=== PATIENT | male | born 1955 | race Two or more races ===

== ENCOUNTER 2024-07-22 05:59 | Emergency (ER) | payer MEDICARE, OTHER ==
[~2024-07-22] VITALS: Ht 162.6 cm; Wt 65.5 kg
[2024-07-22] MEDS ORDERED: ATOR40TA28 PO (06:09)
[2024-07-22] MEDS ORDERED: LOSA-382 PO (06:09)
[2024-07-22 06:34] LABS: BASOPHILS % (AUTO) 0.5 % (0.0-2.0); EOSINOPHILS % (AUTO) 1.4 % (1.0-6.0); HEMATOCRIT 35.4 % (41-53); HEMOGLOBIN 11.9 g/dL (13.5-17.5); LYMPHOCYTES # (AUTO) 0.6 K/uL (1.0-4.8); LYMPHOCYTES % (AUTO) 7.5 % (22.0-44.0); MEAN CORPUSCULAR HGB CONC 33.6 G/dL (31.0-37.0); MEAN CORPUSCULAR VOLUME 89 fL (80-100); MONOCYTES # (AUTO) 0.4 K/uL (0.1-1.0); MONOCYTES % (AUTO) 4.9 % (2.0-9.0); NEUTROPHILS # (AUTO) 7.3 K/uL (1.8-7.7); PLATELET COUNT (AUTO) 362 K/uL (150-450); RED BLOOD CELL COUNT(AUTO) 3.96 MIL/uL (4.50-5.90); RED CELL DISTRIBUTION WIDTH 14.2 % (11.5-14.5); WHITE BLOOD COUNT (AUTO) 8.5 K/uL (4.5-11.0)
[2024-07-22 06:39] LABS: NEUTROPHILS % (AUTO) 85.7 % (40.0-70.0)
[2024-07-22 06:41] LABS: CALCIUM, TOTAL 8.8 mg/dL (8.8-10.5); CREATININE 1.78 mg/dL (0.60-1.30); POTASSIUM 4.3 mmol/L (3.5-5.1)
[2024-07-22] MEDS: MORPHINE SULFATE 4 MG/ML SYRINGE IVP ONE (07:51)
[2024-07-22] MEDS: ONDANSETRON HCL 4 MG/2 ML VIAL IVP ONE (07:51)
[2024-07-22 10:04] LABS: APPEARANCE,URINE CLEAR (CLEAR); BILIRUBIN,URINE NEGATIVE (NEGATIVE); COLOR,URINE LIGHT YELLOW (YELLOW); GLUCOSE, URINE (UA) NEGATIVE (NEGATIVE); KETONES,URINE NEGATIVE (NEGATIVE); LEUKOCYTE ESTERASE ,URINE NEGATIVE (NEGATIVE); NITRATE,URINE NEGATIVE (NEGATIVE); PH,URINE 5.5 (5.0-8.0); PROTEIN,URINE NEGATIVE (NEGATIVE); SPECIFIC GRAVITIY, URINE 1.014 (1.003-1.030); UROBILINOGEN,URINE <=1.0 mg/dL (<=1.0)
[2024-07-22 10:12] VITALS: BP 133/79; PULSE 69; RESP 18; TEMP 98; O2SAT 100
[2024-07-22 10:19] LABS: OCCULT BLOOD,URINE TRACE (NEGATIVE); RBC,URINE 0-2 /HPF (0-2)
[2024-07-22 10:20] LABS: BACTERIA,URINE None Seen /HPF (None Seen); SQUAMOUS EPITHELIAL CELL,UR Rare /LPF (None Seen); WBC,URINE None Seen /HPF (0-5)
[2024-07-22] MEDS ORDERED: TAMS0.4C94 PO (10:53)
[2024-07-22] MEDS ORDERED: HYDR-4072 PO (10:53)
[2024-07-22] MEDS: TAMSULOSIN HCL 0.4 MG CAPSULE PO ONE (11:08)
[2024-07-23] MEDS ORDERED: LOSA100T59 PO (11:48)
[2024-07-23] MEDS ORDERED: FLUT16SP NASAL (11:48)
[2024-07-23] MEDS ORDERED: ROSU40TA88 PO (11:48)
== END 2024-07-22 12:00 | disposition home or self-care (01) ==
LOC: EMS 05:59
DX: N13.2 Hydronephrosis with renal and ureteral calculous obstruction (principal); I12.9 Hypertensive chronic kidney disease with stage 1 through stage 4 chronic kidney disease, or unspecified chronic kidney disease; N18.9 Chronic kidney disease, unspecified; E78.00 Pure hypercholesterolemia, unspecified; Z79.899 Other long term (current) drug therapy; Z90.49 Acquired absence of other specified parts of digestive tract
CPT/HCPCS: 99285; 74176; 96374; 96375; 80048; 81001; 83690; 85025; 36415; 93005; J2270; J2405

== ENCOUNTER 2024-07-23 07:28 | Inpatient (IN) | payer MEDICARE, OTHER ==
[~2024-07-23] VITALS: Ht 162.6 cm; Wt 65.5 kg
[~2024-07-23 07:28] MED LIST: ATOR40TA28 PO; HYDR-4072 PO; LOSA-382 PO; TAMS0.4C94 PO
[2024-07-23 08:04] LABS: HEMATOCRIT 34.3 % (41-53); HEMOGLOBIN 11.6 g/dL (13.5-17.5); LYMPHOCYTES % (AUTO) 10.7 % (22.0-44.0); MEAN CORPUSCULAR HEMOGLOBIN 30.1 pg (26.0-34.0); MEAN CORPUSCULAR HGB CONC 33.9 G/dL (31.0-37.0); MEAN CORPUSCULAR VOLUME 89 fL (80-100); MONOCYTES # (AUTO) 0.6 K/uL (0.1-1.0); MONOCYTES % (AUTO) 6.7 % (2.0-9.0); NEUTROPHILS % (AUTO) 77.6 % (40.0-70.0); PLATELET COUNT (AUTO) 339 K/uL (150-450); RED BLOOD CELL COUNT(AUTO) 3.87 MIL/uL (4.50-5.90)
[2024-07-23 08:14] LABS: CALCIUM, TOTAL 8.9 mg/dL (8.8-10.5); CREATININE 2.31 mg/dL (0.60-1.30); POTASSIUM 4.4 mmol/L (3.5-5.1)
[2024-07-23] MEDS: SODIUM CHLORIDE 0.9% 1,000 ML IV ONE (08:30)
[2024-07-23] MEDS: MORPHINE SULFATE 4 MG/ML SYRINGE IVP ONE (08:30)
[2024-07-23 08:42] LABS: APPEARANCE,URINE CLEAR (CLEAR); BILIRUBIN,URINE NEGATIVE (NEGATIVE); COLOR,URINE COLORLESS (YELLOW); GLUCOSE, URINE (UA) NEGATIVE (NEGATIVE); KETONES,URINE NEGATIVE (NEGATIVE); LEUKOCYTE ESTERASE ,URINE NEGATIVE (NEGATIVE); NITRATE,URINE NEGATIVE (NEGATIVE); OCCULT BLOOD,URINE NEGATIVE (NEGATIVE); PROTEIN,URINE NEGATIVE (NEGATIVE); SPECIFIC GRAVITIY, URINE 1.004 (1.003-1.030); UROBILINOGEN,URINE <=1.0 mg/dL (<=1.0)
[2024-07-23] MEDS: TAMSULOSIN HCL 0.4 MG CAPSULE PO ONE (09:54)
[2024-07-23] MEDS: RINGERS SOLUTION,LACTATED 1,000 ML IV ONE (09:54)
[2024-07-23 11:28] VITALS: BP 123/67; PULSE 85; RESP 18; TEMP 98.4; O2SAT 100
[2024-07-23] MEDS ORDERED: MORPHINE SULFATE 2 MG/ML SYRINGE IVP PRN (11:45)
[2024-07-23] MEDS ORDERED: ROSU40TA88 PO (11:48)
[2024-07-23] MEDS ORDERED: LOSA100T59 PO (11:48)
[2024-07-23] MEDS ORDERED: FLUT16SP NASAL (11:48)
[2024-07-23] MEDS: LACTULOSE 20 GM/30 ML SOLUTION UDCUP PO PRN (11:57)
[2024-07-23 13:22] LABS: CREATININE,URINE RANDOM 22.7 mg/dL (30.0-125.0); SODIUM,URINE RANDOM 79 mmol/l (20-110); UREA NITROGEN,URINE RANDOM 132 mg/dL (350-1000)
[2024-07-23 13:29] LABS: PROTEIN,URINE RANDOM < 6 mg/dL (0-11.9)
[2024-07-23] MEDS ORDERED: ZOLPIDEM TARTRATE 5 MG TABLET PO PRN (14:15)
[2024-07-23] MEDS ORDERED: MAGNESIUM HYDROXIDE SUSPENSION 30 ML UDCUP PO PRN (14:15)
[2024-07-23] MEDS ORDERED: ONDANSETRON HCL 4 MG/2 ML VIAL IVP PRN (14:15)
[2024-07-23] MEDS: SODIUM CHLORIDE 0.9% 1,000 ML IV SCH (14:51)
[2024-07-23] MEDS: MORPHINE SULFATE 2 MG/ML SYRINGE IVP PRN (14:55)
[2024-07-23 15:35] VITALS: BP 150/87; PULSE 86; RESP 18; TEMP 98.4; O2SAT 96
[2024-07-23] MEDS: HEPARIN SODIUM,PORCINE 5,000 UNITS/ML VIAL SQ SCH (16:21)
[2024-07-23 18:16] VITALS: BP 146/94; PULSE 82
[2024-07-23 20:35] VITALS: BP 133/77; PULSE 89; RESP 16; TEMP 98.4; O2SAT 96
[2024-07-23] MEDS: ROSUVASTATIN CALCIUM 20 MG TABLET PO SCH (20:37)
[2024-07-23] MEDS: BISACODYL 10 MG RECTAL RECTAL SUPPOSITORY PR PRN (20:37)
[2024-07-24 04:09] VITALS: BP 135/77; PULSE 90; RESP 18; TEMP 98.1; O2SAT 96
[2024-07-24 06:55] LABS: CALCIUM, TOTAL 8.3 mg/dL (8.8-10.5); CREATININE 2.31 mg/dL (0.60-1.30); POTASSIUM 4.3 mmol/L (3.5-5.1)
[2024-07-24] MEDS: TAMSULOSIN HCL 0.4 MG CAPSULE PO SCH (07:47)
[2024-07-24] MEDS: LOSARTAN POTASSIUM 50 MG TABLET PO SCH (07:48)
[2024-07-24] MEDS: PANTOPRAZOLE SODIUM 40 MG DR TABLET PO SCH (07:48)
[2024-07-24] MEDS: FLUTICASONE PROPIONATE 50 MCG/SPRAY 16 GM NASAL SPRAY NASAL SCH (07:51)
[2024-07-24 08:05] VITALS: BP 140/80; PULSE 87; RESP 18; TEMP 97.7; O2SAT 98
[2024-07-24] MEDS: MAGNESIUM CITRATE [LEMON] 300 ML ORAL SOLUTION PO ONE (12:30)
[2024-07-24 16:11] VITALS: BP 141/86; PULSE 86; RESP 18; TEMP 97.7; O2SAT 96
[2024-07-24 19:45] VITALS: BP 141/80; PULSE 92; RESP 18; TEMP 98.6; O2SAT 99
[2024-07-25] VITALS (7 sets, daily range): BP systolic 117–155; BP diastolic 56–86; PULSE 85–108; RESP 17–20; TEMP 98.1–99.9; O2SAT 95–99
[2024-07-25] MEDS: HYDROCODONE/ACETAMINOPHEN 5-325 MG TABLET PO PRN (00:45)
[2024-07-25 06:49] LABS: BASOPHILS % (AUTO) 0.4 % (0.0-2.0); EOSINOPHILS % (AUTO) 0.5 % (1.0-6.0); HEMOGLOBIN 10.1 g/dL (13.5-17.5); LYMPHOCYTES # (AUTO) 0.6 K/uL (1.0-4.8); LYMPHOCYTES % (AUTO) 6.9 % (22.0-44.0); MEAN CORPUSCULAR HEMOGLOBIN 30.1 pg (26.0-34.0); MEAN CORPUSCULAR HGB CONC 33.6 G/dL (31.0-37.0); MEAN CORPUSCULAR VOLUME 90 fL (80-100); MONOCYTES # (AUTO) 0.8 K/uL (0.1-1.0); MONOCYTES % (AUTO) 8.6 % (2.0-9.0); NEUTROPHILS # (AUTO) 7.6 K/uL (1.8-7.7); NEUTROPHILS % (AUTO) 83.6 % (40.0-70.0); PLATELET COUNT (AUTO) 265 K/uL (150-450); RED BLOOD CELL COUNT(AUTO) 3.35 MIL/uL (4.50-5.90); RED CELL DISTRIBUTION WIDTH 14.1 % (11.5-14.5); WHITE BLOOD COUNT (AUTO) 9.1 K/uL (4.5-11.0)
[2024-07-25 06:59] LABS: ALBUMIN 2.7 g/dL (3.4-5.0); BILIRUBIN,TOTAL 0.6 mg/dL (0.1-1.0); CALCIUM, TOTAL 8.1 mg/dL (8.8-10.5); CREATININE 2.39 mg/dL (0.60-1.30); TOTAL PROTEIN, SERUM 6.3 g/dL (6.4-8.2)
[2024-07-25 07:04] LABS: MAGNESIUM 1.9 mg/dL (1.80-2.40); PHOSPHORUS 2.3 mg/dL (2.5-4.9)
[2024-07-25] MEDS: AmLODIPine BESYLATE 10 MG TABLET PO SCH (08:43)
[2024-07-25] MEDS: ACETAMINOPHEN 325 MG TABLET PO PRN (15:25)
[2024-07-26] VITALS (8 sets, daily range): BP systolic 113–150; BP diastolic 73–84; PULSE 64–98; RESP 18–30; TEMP 97.5–97.9; O2SAT 93–100
[2024-07-26] MEDS ORDERED: METOPROLOL TARTRATE 5 MG/5 ML VIAL ONE (12:00)
[2024-07-26] MEDS ORDERED: ROCURONIUM BROMIDE 10 MG/ML 5 ML VIAL ONE (12:00)
[2024-07-26] MEDS ORDERED: FentaNYL CITRATE PF 100 MCG/2 ML VIAL ONE (12:00)
[2024-07-26] MEDS ORDERED: LIDOCAINE/PF 2% 5 ML VIAL ONE (12:00)
[2024-07-26] MEDS ORDERED: ONDANSETRON HCL 4 MG/2 ML VIAL ONE (12:00)
[2024-07-26] MEDS ORDERED: DEXAMETHASONE SOD PHOS 4 MG/ML VIAL ONE (12:00)
[2024-07-26] MEDS ORDERED: SUGAMMADEX SODIUM 200 MG/2 ML VIAL IVP ONE (12:00)
[2024-07-26] MEDS ORDERED: PROPOFOL 1% 20 ML VIAL IVP ONE (12:00)
[2024-07-26] MEDS ORDERED: ACETAMINOPHEN/ISO-OSM 1000 MG/100 ML BOTTLE IV ONE (12:00)
[2024-07-26] MEDS ORDERED: KETOROLAC TROMETHAMINE 60 MG/2 ML VIAL IM ONE (12:00)
[2024-07-26] MEDS: CHLORHEXIDINE GLUCONATE 2% TOWELETTE [2'S/6'S] TP ONE (12:53)
[2024-07-26] MEDS ORDERED: SODIUM CHLORIDE 0.9% 1,000 ML ONE (13:58)
[2024-07-26] MEDS: ETHYL ALCOHOL 62% ANTISEPTIC NASAL SANITIZER 0.6 ML AMPUL NASAL ONE (14:47)
[2024-07-26] MEDS: SODIUM CHLORIDE 0.9% 1,000 ML IV ONE (16:00)
[2024-07-26] MEDS ORDERED: IOHEXOL 240 MG/ML 20 ML VIAL ONE (16:45)
[2024-07-26] MEDS ORDERED: FentaNYL CITRATE PF 100 MCG/2 ML VIAL IVP PRN (16:45)
[2024-07-26] MEDS ORDERED: MEPERIDINE-PF 25 MG/ML VIAL IVP PRN (16:45)
[2024-07-26] MEDS: RINGERS SOLUTION,LACTATED 1,000 ML IV ONE (16:51)
[2024-07-26] MEDS: CefTRIAXone 1 GM/DEXTROSE 50 ML IV ONE (16:51)
[2024-07-26] MEDS: ALBUTEROL SULFATE 2.5 MG/0.5 ML NEB SOLUTION NEB PRN (19:12)
[2024-07-26] MEDS: IPRATROPIUM BROMIDE 0.5 MG/2.5 ML NEB SOLUTION NEB PRN (19:12)
[2024-07-26] MEDS ORDERED: HYDROmorphone HCL 2 MG/ML SYRINGE ONE (19:36)
[2024-07-26] MEDS: HYDROmorphone HCL 2 MG/ML SYRINGE IVP PRN (19:37)
[2024-07-26] MEDS: OXYGEN THERAPY IH SCH (21:13)
[2024-07-27] VITALS (8 sets, daily range): BP systolic 113–137; BP diastolic 71–87; PULSE 72–93; RESP 18; TEMP 97.4–98.4; O2SAT 95–96
== END 2024-07-27 00:20 | disposition short-term general hospital (02) | DRG 694 ==
LOC: EMS 07:34 → EDH 09:38 → 6N 11:00 → 4E 07-24 17:16 → 5N 07-26 20:22
PROVIDERS: ADMIT Hospitalist; ATTEND Hospitalist
PROC: 0TCB8ZZ Extirpation of Matter from Bladder, Via Natural or Artificial Opening Endoscopic (ICD-10-PCS; 2024-07-26)
PROC: BT141ZZ Fluoroscopy of Kidneys, Ureters and Bladder using Low Osmolar Contrast (ICD-10-PCS; principal; 2024-07-26 17:30)
DX: N13.2 Hydronephrosis with renal and ureteral calculous obstruction (principal); N17.9 Acute kidney failure, unspecified; I12.9 Hypertensive chronic kidney disease with stage 1 through stage 4 chronic kidney disease, or unspecified chronic kidney disease; N18.9 Chronic kidney disease, unspecified; N40.0 Benign prostatic hyperplasia without lower urinary tract symptoms; K44.9 Diaphragmatic hernia without obstruction or gangrene; D63.1 Anemia in chronic kidney disease; K59.00 Constipation, unspecified; E78.5 Hyperlipidemia, unspecified; F10.90 Alcohol use, unspecified, uncomplicated; F17.200 Nicotine dependence, unspecified, uncomplicated; N18.4 Chronic kidney disease, stage 4 (severe); M10.9 Gout, unspecified; R73.03 Prediabetes; Z71.6 Tobacco abuse counseling
CPT/HCPCS: 71045; 74018; 74176; 76770; 80048; 80053; 81001; 81003; 82570; 83690; 83735; 84100; 84156; 84300; 84540; 85025; 87081; 93005; 94640; 96361; 96374; 96375; 99285; G0378; J0131; J0696; J1100; J1171; J1644; J1885; J2270; J2405; J2704; J3010; J3490; J7030; J7120; Q9966; 36415-L1; 36415-TC; Z7610